=== PATIENT | female | born 1975 | race Two or more races ===

== ENCOUNTER 2018-01-17 00:39 | Emergency (ER) | payer OTHER ==
[2018-01-17 01:49] LABS: ABSOLUTE EOSINOPHILS # (AUTO) 0.2 10^3/uL (0.0-0.6); ABSOLUTE LYMPHOCYTES (AUTO) 1.9 10^3/uL (0.5-4.7); ABSOLUTE MONOCYTES (AUTO) 0.6 10^3/uL (0.1-1.4); ABSOLUTE NEUT (AUTO) 4.3 10^3/uL (1.7-8.2); BASOPHILS % (AUTO) 0.6 % (0-2); EOSINOPHILS % (AUTO) 2.4 % (0-6); HEMATOCRIT 38.5 % (36.0-47.0); LYMPHOCYTES % (AUTO) 27.2 % (13-45); MEAN CORPUSCULAR HEMOGLOBIN 29.7 pg (27.0-33.4); MEAN CORPUSCULAR HGB CONC 33.6 g/dL (32.0-36.0); MEAN CORPUSCULAR VOLUME 88 fl (80-97); MONOCYTES % (AUTO) 8.5 % (3-13); PLATELET COUNT 229 10^3/uL (150-450); RED BLOOD COUNT 4.36 10^6/uL (3.72-5.28); RED CELL DISTRIBUTION WIDTH 13.5 % (11.5-14.0); SEGMENTED NEUTROPHILS % (AUTO) 61.3 % (42-78); TOTAL CELLS COUNTED % (AUTO) 100 %; WHITE BLOOD COUNT 7.1 10^3/uL (4.0-10.5)
[2018-01-17 01:50] LABS: ALANINE AMINOTRANSFERASE 23 U/L (9-52); ALBUMIN 4.3 g/dL (3.5-5.0); ALKALINE PHOSPHATASE 109 U/L (38-126); ANION GAP 12 (5-19); ASPARTATE AMINO TRANSFERASE 55 U/L (14-36); BILIRUBIN,DIRECT 0.2 mg/dL (0.0-0.4); BILIRUBIN,TOTAL 0.2 mg/dL (0.2-1.3); BLOOD UREA NITROGEN 16 mg/dL (7-20); CALCIUM 9.4 mg/dL (8.4-10.2); CARBON DIOXIDE 27 mmol/L (22-30); CHLORIDE 108 mmol/L (98-107); CREATINE KINASE 91 U/L (30-135); GLUCOSE 101 mg/dL (75-110); POTASSIUM 4.2 mmol/L (3.6-5.0); TOTAL PROTEIN 7.6 g/dL (6.3-8.2)
[2018-01-17 02:02] LABS: CREATINE KINASE MB 0.66 ng/mL (<4.55)
[2018-01-17 02:03] LABS: TROPONIN I < 0.012 ng/mL
--- NOTE | 2018-01-17 03:50 | ER Document Report ---
ED General - General Chief Complaint: Chest Pain Stated Complaint: CHEST PAIN Time Seen by Provider: 01/17/18 03:49 Notes: Patient is a 42-year-old female presents with complaint of pain in the epigastric area radiating to the back. She said she was having some pain rating to her chest from the abdomen but now the pain is mostly just in the abdomen. Said she did feel nauseous but no vomiting. No bloody stools. No dark tarry stools. She does not drink alcohol. She does drink lots of soda. She only takes Topamax for headaches and has no other chronic medical problems. She denies any recent fevers or infections. No history of coronary disease or any cardiac issues. TRAVEL OUTSIDE OF THE [place] IN LAST 30 DAYS: No - Related Data Allergies/Adverse Reactions: erythromycin base Allergy (Verified 01/17/18 00:42) Past Medical History - Social History Smoking Status: Never Smoker Frequency of alcohol use: None Drug Abuse: None Family History: Reviewed & Not Pertinent Review of Systems - Review of Systems Notes: My Normal Review Basic REVIEW OF SYSTEMS: CONSTITUTIONAL : Denies fever, chills, or sweats. Denies recent illness. CARDIOVASCULAR: Some pain radiating to chest from upper abdomen. RESPIRATORY: Denies cough, cold, or chest congestion. Denies shortness of breath, difficulty breathing, or wheezing. GASTROINTESTINAL: Upper abdominal pain. Nausea. No vomiting. GENITOURINARY: Denies difficulty urinating, painful urination, burning, frequency, or blood in urine. FEMALE GENITOURINARY: Denies vaginal bleeding, abnormal or irregular periods. MUSCULOSKELETAL: Denies neck or back pain or joint pain or swelling. SKIN: Denies rash or skin lesions. NEUROLOGICAL: Denies altered mental status or loss of consciousness. Denies headache. Denies weakness or paralysis or loss of use of either side. Denies problems with gait or speech. Denies sensory or motor loss. ALL OTHER SYSTEMS REVIEWED AND NEGATIVE. Physical Exam - Vital signs Vitals: Temp Pulse Resp BP Pulse Ox 98 F 56 L 18 116/62 99 01/17/18 00:46 01/17/18 00:46 01/17/18 00:46 01/17/18 00:46 01/17/18 00:46 - Notes Notes: General Appearance: Well nourished, alert, cooperative, no acute distress, moderate obvious discomfort. Vitals: reviewed, See vital signs table. Head: no swelling or tenderness to the head Eyes: PERRL, EOMI, Conjuctiva clear Mouth: No decreasd moistur Lungs: No wheezing, No rales, No rhonci, No accessory muscle use, good air exchange bilaterally. Heart: Normal rate, Regular rythm, No murmur, no rub Abdomen: Normal BS, soft, No rigidity, epigastric abdominal tenderness to palpation, No guarding, no rebound, no abdominal masses, no organomegaly Extremities: strength 5/5 in all extremities, good pulses in all extremities, no swelling or tenderness in the extremities, no edema. Skin: warm, dry, appropriate color, no rash Neuro: speech clear, oriented x 3, normal affect, responds appropriately to questions. Course - Re-evaluation Re-evalutation: 01/17/18 06:34 Patient's pain is improved with morphine. She says she still has very slight epigastric pain but is much improved. Suspect that she most likely has gastritis or nonbleeding ulcer based on location of her pain in her symptoms. Her lipase is negative and she has no evidence of pancreatitis. She does not have any fevers. She is she has not any blood in her stool or black or tarry stools. There is no evidence of gastric bleeding at this time. Will place her on Carafate and have her start taking Pepcid. I will refer her to GI physician , Dr. Green. I strongly encouraged her return to ER immediately if she has any black or tarry stools, worsening pain, vomiting blood, or she feels unwell. Patient agrees with plan will be discharged home. Dictation of this chart was performed using voice recognition software; therefore, there may be some unintended grammatical errors. - Vital Signs Vital signs: Temp Pulse Resp BP Pulse Ox 98 F 75 15 114/62 98 01/17/18 01:34 01/17/18 01:34 01/17/18 04:02 01/17/18 04:02 01/17/18 04:11 - Laboratory Result Diagrams: 01/17/18 01:15 01/17/18 01:15 Laboratory results interpreted by me: 01/17/18 01:15 Sodium 147.0 H Chloride 108 H AST 55 H - EKG Interpretation by Me Additional EKG results interpreted by me: 01/17/18 03:49 EKG is reviewed and interpreted by me. EKG shows sinus rhythm with a rate of 80 bpm. Patient has very mild, less than half a millimeter ST segment depression in lateral precordial leads. ST segment depression. No concerning T -wave inversions. No old EKG available for comparison at this time. PA interval, QRS duration, QTc intervals are within normal range. 01/17/18 04:10 EKG #2 is reviewed and interpreted by me. EKG continues to show very minimal ST segment depression lateral leads consistent with what was seen on old EKG. No ST segment elevation. No concerning T-wave inversions. PA interval, QRS duration, QTc intervals are within normal range. Discharge - Discharge Clinical Impression: Abdominal pain Qualifiers: Abdominal location: epigastric Qualified Code(s): R10.13 - Epigastric pain Condition: Good Disposition: HOME, SELF-CARE Additional Instructions: Please avoid spicy foods, acidic foods, fried foods, and fatty foods. Please eat a very bland diet and drink only clear liquids that are non caffeinated. Please follow up with your doctor or the GI doctor (Dr. Green) for reevaluation and discussion about possible endoscopy. Please take Pepcid every day. Please take the carafate as prescribed. Please return to the ER immediately if you develop vomiting of blood, black or tarry stools, worsening pain, fevers, or feel unwell. Do not take any over the counter pain medicines except acetaminophen (tylenol). Please be aware that the Marvin has acetaminophen in it so do not take a total of more than4,000mg of acetaminophen a day. Prescriptions: Famotidine [Pepcid 40 mg Tablet] 40 mg PO DAILY #30 tablet Sucralfate [Carafate Susp 1 Gm/10 Ml Udcup] 1 gm PO ACHS 7 Days udc Forms: Return to Work Referrals: IRENE GREEN MD [ACTIVE STAFF] - Follow up in 3-5 days
[2018-01-17] MEDS ORDERED: MAG HYDROX/AL HYDROX/SIMETH SUSP 30 ML UDCUP PO ONE (03:57)
[2018-01-17] MEDS ORDERED: LIDOCAINE 2% VISCOUS SOLN 20 ML UDCUP PO ONE (03:57)
[2018-01-17] MEDS ORDERED: METOCLOPRAMIDE HCL ORAL SOLN 10 MG/10 ML UDCUP PO ONE (03:57)
--- NOTE | 2018-01-17 04:15 | RADIOLOGY REPORT (SQ) ---
EXAM DESCRIPTION: XR CHEST 1 VIEW COMPLETED DATE/TME: 01/17/2018 00:57 CLINICAL HISTORY: CP COMPARISON: None. FINDINGS: Single frontal view of the chest. Leads overlie the chest. The cardiomediastinal silhouette has normal size and contour. No consolidation, pneumothorax, or pleural effusion. No displaced rib fractures identified. Upper abdominal soft tissues are unremarkable. IMPRESSION: 1. No acute pulmonary process identified.
[2018-01-17 04:25] VITALS: BP 114/62
[2018-01-17] MEDS ORDERED: MORPHINE SULFATE 10 MG/ML INJ IV ONE (04:43)
[2018-01-17] MEDS ORDERED: MORPHINE SULFATE 10 MG/ML INJ IM ONE (05:32)
[2018-01-17] MEDS ORDERED: HYDROCODONE/ACETAMINOPHEN 5-325 MG (6 TAB/ER DISP) PO PRN (06:21)
[2018-01-17] MEDS ORDERED: ONDANSETRON ODT 4 MG TAB (6 TAB/ER DISP) PO PRN (06:21)
--- NOTE | 2018-01-18 07:49 | EKG REPORT ---
SEVERITY:- NORMAL ECG - SINUS RHYTHM : Confirmed by: Genesis Burch MD 18-Jan-2018 07:49:06
--- NOTE | 2018-01-18 07:49 | EKG REPORT ---
SEVERITY:- NORMAL ECG - SINUS RHYTHM : Confirmed by: Genesis Burch MD 18-Jan-2018 07:49:02
== END 2018-01-17 06:46 | disposition home or self-care (01) ==
LOC: ER 00:39
DX: R10.13 Epigastric pain (principal); R07.9 Chest pain, unspecified; M54.9 Dorsalgia, unspecified; R11.0 Nausea; Z79.899 Other long term (current) drug therapy
CPT/HCPCS: 93005 ×2; 99285; 96372; 36415; 82553; 82550; 83690; 85025; 80053; 84484; 71045; 93010 ×2; J3490; J2270

== ENCOUNTER → 2019-01-22 | Outpatient (CLI) | payer OTHER ==
--- NOTE | 2019-01-22 11:36 | WOMENS IMAGING REPORT ---
EXAM DESCRIPTION: BILAT SCREENING MAMMO W/CAD COMPLETED DATE/TIME: 01/22/2019 10:40 am REASON FOR STUDY: Z12.31 ROUTINE BILATERAL SCREENING Z12.31 ENCNTR SCREEN MAMMOGRAM FOR MALIGNANT N EOPLASM OF RAYNA COMPARISON: Baseline study EXAM PARAMETERS: Standard craniocaudal and mediolateral oblique views of each breast recorded using digital acquisition. Read with the assistance of CAD. .REPLACED BY [facility] - [employer] Automatic Version 9.2 LIMITATIONS: None. FINDINGS: No suspicious masses, suspicious calcifications or architectural distortion. No areas of s uspicion. IMPRESSION: Negative MAMMOGRAM. BIRADS 1 BREAST DENSITY: b. There are scattered areas of fibroglandular density. BIRAD: ASSESSMENT: 1 NEGATIVE RECOMMENDATION: ROUTINE SCREENING COMMENT: The patient has been notified of the results by letter per MQSA requirements. Additional no tification policies are in place for contacting patient with suspicious or incomplete findings. Quality ID #[id number]: The [employer] recommends an annual screening mammogram for women aged 40 years or over. This facility utilizes a reminder system to ensure that all patients receive reminder letters, and/or direct phone calls for appointments. This includes reminders for routine scr eening mammograms, diagnostic mammograms, or other Breast Imaging Interventions when appropriate. Th is patient will be placed in the appropriate reminder system. TECHNICAL DOCUMENTATION: FINDING NUMBER: (1) ASSESSMENT: (1) JOB ID: [id number] [employer]- All Rights Reserved Reading location - IP/workstation name: [email or web address]
== END ==
LOC: WI 10:15
PROVIDERS: ATTEND Family Medicine
DX: Z12.31 Encounter for screening mammogram for malignant neoplasm of breast (principal)
CPT/HCPCS: 77067